=== PATIENT | male | born 1965 | race Caucasian/White ===

== ENCOUNTER 2019-12-21 16:45 | Outpatient (CLI) | payer OTHER, SELFPAY ==
--- NOTE | ~2019-12-21 | XR_ITS ---
EXAMINATION: XR chest 2V DATE: 12/21/2019 17:00 INDICATION: Cough and shortness of breath TECHNIQUE: PA and lateral views of the chest are obtained. COMPARISON: 10/19/2017 FINDINGS: The lungs are free of acute opacities. There is no pleural effusion or pneumothorax. The ca rdiomediastinal silhouette is normal. There is mild thoracic spondylosis. IMPRESSION: 1. No acute cardiopulmonary abnormality. Reviewed, dictated and finalized at location A.
== END 2019-12-21 16:46 | disposition home or self-care (01) ==
LOC: CHSIMG 16:48
PROVIDERS: PCP Internal Medicine; Visit Provider Internal Medicine
DX: R05 Cough (principal)
CPT/HCPCS: 71046

== ENCOUNTER 2024-09-14 11:33 | Outpatient (CLI) | payer OTHER, SELFPAY ==
--- NOTE | ~2024-09-14 | CT_ITS ---
CT Scan of the Chest without Contrast: Clinical Indication: Lung cancer screening, nicotine dependence Technique: Contiguous sections were acquired throughout the chest without intravenous contrast. Dose reduction technique was used on this scan by utilizing automated exposure control and iterative recon struction technique. The dose-length product (DLP) was 116.65 mGy-cm. Findings: There is no evidence of any significant mediastinal, hilar or axillary lymphadenopathy. Severe arce ry artery calcification. There is no evidence of pleural or pericardial effusion. There is mild to moderate emphysema in the upper lobes. No distinct pulmonary nodule evident. Images through the upper abdomen reveal no abnormalities. Impression: Lung RADS 1: Negative. [address] advised. Reviewed, dictated and finalized at location . Impression: Lung RADS 1: Negative. [address] advised.
== END 2024-09-14 11:34 | disposition home or self-care (01) ==
LOC: MICIMG 11:36
PROVIDERS: PCP Family Medicine; Visit Provider Family Medicine
DX: Z12.2 Encounter for screening for malignant neoplasm of respiratory organs (principal); Z87.891 Personal history of nicotine dependence
CPT/HCPCS: 71271

== ENCOUNTER 2025-06-16 16:50 | Emergency (ER) | payer OTHER, SELFPAY ==
--- NOTE | ~2025-06-16 | CT_ITS ---
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 Technique: Axial images obtained of the brain without contrast. One or more of the following dose reduction techniques were used: automated exposure control, adjustment of the mA and/or kV according to patient size, use of iterative reconstruction technique. Findings: No acute infarct or parenchymal hemorrhage. No abnormal mass or mass effect. No midline shift. No extra-axial fluid collections. No hydrocephalus. Mastoid air cells unremarkable. Sinuses and orbits unremarkable. No acute fracture. No significant facial or scalp soft tissue swelling evident. No radiopaque foreign body is seen. Impression: 1.No acute intracranial abnormality. Reviewed, dictated and finalized at location P. R SUPERVISOR Impression: 1.No acute intracranial abnormality.
[2025-06-16 16:52] VITALS: BP 123/76; PULSE 69; RESP 16; TEMP 36.7; O2SAT 96
--- NOTE | 2025-06-16 17:01 | ED.HEATRA ---
HPI - Head Injury General Chief complaint: Head Injury Stated complaint: head injury from a fall Time Seen by Provider: 06/16/25 16:56 Source: patient and family Mode of arrival: ambulatory Limitations: no limitations History of Present Illness HPI Narrative: This is a 59-year-old male with no significant past medical history had a fall while working in his yd and hit the right occipital scalp cause abrasion to the scalp area with no loss of consciousness mild headache with no blurry vision no nausea vomiting no chest pain or shortness of breath no neck pain or neck stiffness no fever chills no chest pain or shortness of breath. MD Complaint: head injury Onset (ago): hour(s) Mechanism of Injury: fall Place: outdoors Loss of Consciousness: no Location of injury: occipital Severity: mild Severity scale (1-10): 2 Related Data Allergies Allergy/AdvReac Type Severity Reaction Status Date / Time diphenhydramine Allergy Unknown Hives / Verified 09/29/18 11:04 Red Face Penicillins Allergy Unknown Swelling Verified 09/29/18 11:04 Review of Systems Review of Systems: All systems reviewed & are unremarkable except as noted in HPI and below Exam Const: General: healthy appearing and no acute distress Nutritional Appearance: well nourished Orientation/consciousness: patient oriented x3 Limitations: no limitations HENMT: Head: normal to inspection Ears: external ears normal Eyes: Conjunctivae: conjunctivae normal Pupils: Equal, round and reactive pupils present EOM: EOMs intact bilaterally Neck: Neck: normal visual inspection, no lymphadenopathy and no meningeal signs Chest: Chest palpation & inspection: normal inspection of the chest Resp: Effort & Inspection: normal respiratory effort Auscultation: clear to auscultation bilaterally Cardio: Rate: regular rate Rhythm: regular rhythm GI: GI Palp: Yes Soft to palpation Auscultation: normal bowel sounds Back/Spine/Pelvis: Back: no CVA tenderness Skin: Wounds: wounds noted Other: Abrasion to the right occipital scalp area currently no bleeding Neuro: General: patient oriented x3, moves all extremities, no meningeal signs and no focal motor deficits Cranial nerves: Yes CN's II-XII intact bilaterally Speech: normal speech Gait exam (Neuro): Normal gait present Extrem: General: normal to inspection Course Course Emergency Course: Medical decision making unit: Patient was evaluated by myself in the emergency department. History obtained from the patient is an independent historian physical exam performed with this by [facility]. CT scan of the brain showed no acute intracranial abnormalities, the patient has a right abrasion to the l occipital scalp area will update patient with his tetanus with Adacel. CT scan results reviewed with patient which showed no acute intra cranial abnormalities. Repeat assessment: Patient doing well repeat exam with no acute distress Symptoms of are stable since arriving to the ED. Repeat vitals are stable Patient agrees with discussion after shared medical decision making and agrees with discharge All questions answered patient has had family satisfaction Advised follow-up within 3 to 5 days with Primary Patient provided with strict return precautions and return to the ED if any worsening symptoms. Vital Signs Vital signs: Vital Signs Temperature 36.7 C 06/16/25 16:52 Pulse Rate 69 06/16/25 16:52 Respiratory Rate 16 06/16/25 16:52 Blood Pressure 123/76 06/16/25 16:52 Pulse Oximetry 96 06/16/25 16:52 Oxygen Delivery Room Air 06/16/25 16:52 Temperature 36.7 C 06/16/25 16:52 Pulse Rate 69 06/16/25 16:52 Respiratory Rate 16 06/16/25 16:52 Blood Pressure 123/76 06/16/25 16:52 Pulse Oximetry 96 06/16/25 16:52 Oxygen Delivery Room Air 06/16/25 16:52 MDM Differential Diagnosis Differential Diagnosis: Head injury Imaging Data Radiologist's impression: ITS Impressions Head CT 06/16/25 17:25 Impression: 1.No acute intracranial abnormality. Critical Care Time Critical Care Time Critical Care Time: No Discharge Plan Discharge Clinical Impression: Avulsion of skin Closed head injury Qualifiers: Encounter type: initial encounter Qualified Code(s): S09.90XA - Unspecified injury of head, initial encounter Patient Disposition: Home Condition: Stable Instructions: Antibiotic Form, Head Injury (ED), Skin Avulsion (ED) Additional Instructions: Advised patient to take Tylenol or Motrin as needed and follow up with primary within next 3 to 5 days further evaluation treatment. Patient Language: Cymraes Follow-up/Referrals: Lee Medeiros M.D. [Primary Care Provider, [facility]] Time of Disposition: 17:37
[2025-06-16] MEDS: TETANUS,DIPHTHERIA,AC PERTUSSIS ADULT 0.5 ML (ADACEL) IM (17:08)
== END 2025-06-16 17:38 | disposition home or self-care (01) ==
LOC: CHSED 17:29
PROVIDERS: Emergency Provider Emergency Medicine; PCP Family Medicine
DX: S00.01XA Abrasion of scalp, initial encounter (principal); W19.XXXA Unspecified fall, initial encounter; Z23 Encounter for immunization
CPT/HCPCS: 70450; 90471; 90715; 99284